=== PATIENT | female | born 1980 | race Caucasian/White ===

== ENCOUNTER 2016-08-29 16:39 | Emergency (ER) | payer OTHER ==
--- NOTE | 2016-08-29 17:09 | ED.PDOC ---
History of Present Illness - General Chief Complaint: Skin/Abrasion/Tear Stated Complaint: Painful rash to face Time Seen by Provider: 08/29/16 16:45 Source: patient Exam Limitations: no limitations - History of Present Illness Initial Comments: James Sahu 35 y/o female stated that painful skin rash broke out on her forehead as well as both sidea of her scalp getting bald which she noticed it about 6 weeks ago after she had bilateral tubal ligation .Denies fever,joint pains,diarrhea ,abdominal pain or chronic illness exposure.Stated been healthy.She was seen by md was written oral antibiotics and topical steroids. Timing/Duration: other - 1 1/2 months Severity: moderate Location: scalp, face Improving Factors: nothing Worsening Factors: nothing Associated Symptoms: change in skin texture, itching Allergies/Adverse Reactions: Allergies NO KNOWN ALLERGY Allergy (Verified 08/29/16 16:53) Home Medications: Ambulatory Orders Tramadol HCl 50 mg PO TID PRN #10 tab 08/29/16 predniSONE 10 mg PO BID #20 tab 08/29/16 Past Medical History (General) - Patient Medical History Hx Stroke: No Hx Congestive Heart Failure: No Hx Diabetes: No Hx of HIV: No Hx Hepatitis B: No Hx Hepatitis C: No Surgical History: other - tubal ligation,d&c - Vaccination History Hx Influenza Vaccination: No Hx Pneumococcal Vaccination: No - Social History Hx Tobacco Use: No Feels Threatened In a Relationship: No Hx Physical Abuse: No Hx Emotional Abuse: No Hx Suspected Abuse: No - Activities of Daily Living Patient Lives Alone: No - family - Female History Patient is a Female of Child Bearing Age (10 -59 yrs old): Yes Hx Last Menstrual Period: 08/29/16 Patient : No Family Medical History - Family History Mother Family History: No Known Living Status: Still Living Physical Exam - Physical Exam General Appearance: Alert, Anxious, No apparent distress Eyes, Ears, Nose, Throat Exam: PERRL/EOMI, normal ENT inspection, TMs normal, pharynx normal Neck: non-tender, full range of motion, supple, normal inspection Cardiovascular/Chest: normal peripheral pulses, regular rate, rhythm, no edema, no murmur Respiratory: chest non-tender, lungs clear, normal breath sounds, no respiratory distress Gastrointestinal/Abdominal: normal bowel sounds, non tender, soft, no organomegaly Back Exam: normal inspection, no CVA tenderness Extremity: normal range of motion, non-tender, normal inspection, no pedal edema , no calf tenderness Neurologic: alert, normal mood/affect, oriented x 3 Skin Exam: warm/dry, normal color Skin Problem Location: face, scalp - loss of hair both sides of scalp Skin Character: erythema - forehead, rash Lymphatic: no adenopathy Departure - Departure Clinical Impression: Skin lesion of face, Alopecia areata, unspecified Time of Disposition: 17:14 Disposition: Discharge to Home or Self Care Condition: Fair Departure Forms: ED Discharge - Pt. Copy, Patient Portal Self Enrollment Instructions: Skin Biopsy, DI for Skin Lesion Removal Referrals: Katalina Hermosillo FNP [Primary Care Provider] - 1-2 Weeks Prescriptions: predniSONE 10 mg PO BID #20 tab Tramadol HCl 50 mg PO TID PRN #10 tab PRN Reason: Pain Home Medications: Ambulatory Orders Tramadol HCl 50 mg PO TID PRN #10 tab 08/29/16 predniSONE 10 mg PO BID #20 tab 08/29/16 Additional Instructions: FOLLOW UP WITH PRIMARY MD FOR REFERRAL TO DEMATOLOGIST
[2016-08-29 17:23] VITALS: BP 142/94; TEMP 96.9; O2SAT 100
== END 2016-08-29 17:25 | disposition home or self-care (01) ==
LOC: ER 16:39
DX: L98.9 Disorder of the skin and subcutaneous tissue, unspecified (principal); L63.9 Alopecia areata, unspecified; Z79.899 Other long term (current) drug therapy

== ENCOUNTER → 2016-09-02 | Outpatient (CLI) | payer OTHER | END | disposition home or self-care (01) | LOC: YCFC.O 15:41 | PROVIDERS: ATTEND Nurse Practitioner Family | DX: L65.9 Nonscarring hair loss, unspecified (principal); R21 Rash and other nonspecific skin eruption; R53.83 Other fatigue ==